=== PATIENT | female | born 1955 | race Caucasian/White ===

== ENCOUNTER → 2018-06-11 | Outpatient (CLI) | payer OTHER ==
--- NOTE | 2018-06-11 12:48 | XR ---
EXAMINATION TYPE: XR knee limited LT DATE OF EXAM: 06/11/2018 CLINICAL HISTORY: Pain. TECHNIQUE: Two views of the left knee are obtained. COMPARISON: None. FINDINGS: There is no acute fracture/dislocation evident in left knee. Metallic hardware from left k nee arthroplasty is identified in both satisfactory in position. Lateral view shows radiolucent space r. Anterior and posterior calcification or ossification is present. There is posterior patellar spurr ing and subchondral cystic change noted. IMPRESSION: As above.
--- NOTE | 2018-06-11 12:50 | XR ---
EXAMINATION TYPE: XR lumbosacral spine min 4V DATE OF EXAM: 06/11/2018 CLINICAL HISTORY: Low back pain. TECHNIQUE: Frontal, lateral, and oblique images of the lumbar spine are obtained. COMPARISON: None FINDINGS: There are 5 lumbar type vertebral bodies identified. The lumbar spine shows levoconvex sc oliotic curvature centered near thoracolumbar junction without evidence of acute fracture or dislocat ion. Vertebral body heights are within normal limits. Moderate to severe multilevel anterior spurring with mild to moderate disc space narrowing centered thoracolumbar junction and upper lumbar spine is noted. The oblique images appear within normal limits. The overlying soft tissue appears unremark able. IMPRESSION: As above.
== END | disposition home or self-care (01) ==
LOC: RADXRMAIN 12:16
PROVIDERS: ATTEND Family Medicine
DX: M48.05 Spinal stenosis, thoracolumbar region (principal); M41.86 Other forms of scoliosis, lumbar region; M85.662 Other cyst of bone, left lower leg; Z96.653 Presence of artificial knee joint, bilateral
CPT/HCPCS: 72110